=== PATIENT | female | born 1990 | race African-American/Black ===

== ENCOUNTER 2023-02-09 16:55 | Emergency (ER) | payer OTHER ==
[~2023-02-09] VITALS: Ht 165.1 cm; Wt 68.3 kg
[2023-02-09 18:38] LABS: Hematocrit 21.5 % (36.0-46.0); Mean Corpuscular Hemoglobin 17.5 pg (28.0-32.0); Mean Corpuscular Hgb Conc. 29.8 g/dL (32.0-36.0); Mean Corpuscular Volume 58.6 fL (80.0-100.0); Red Blood Cells 3.67 10^6/uL (4.0-5.20)
[2023-02-09 18:45] LABS: Red Cell Distribution Width 21.1 % (11.8-14.3)
[2023-02-09 18:49] LABS: Hemoglobin 6.4 g/dL (12.2-16.2)
[2023-02-09 18:50] LABS: Basophils % (manual) 0 (0.0-2.0); Blast Cells 0; Metamyelocytes % 0; Myelocytes % 0; Promyelocytes % 0; Reactive Lymphocytes 0
[2023-02-09 18:59] LABS: Albumin 3.9 g/dL (3.4-5.0); Calcium 8.5 mg/dL (8.5-10.1); Potassium 4.3 mmol/L (3.5-5.1)
[2023-02-09 19:03] LABS: BUN/Creatinine Ratio 11.1 (10.0-20.0); Bilirubin, Total 0.4 mg/dL (0.2-1.0); Total Protein 7.4 g/dL (6.4-8.2)
[2023-02-09 19:39] LABS: Band Neutrophils % (manual) 1; Eosinophils % (manual) 4 (0-7); Lymphocytes % (manual) 47 (10.0-50.0); Monocytes % (manual) 6 (0-12)
[2023-02-09 21:55] VITALS: BP 113/68
[2023-02-09 22:15] VITALS: BP 112/68
[2023-02-10 02:25] VITALS: BP 105/59
== END 2023-02-10 03:04 | disposition home or self-care (01) ==
LOC: ER 16:55
DX: D64.9 Anemia, unspecified (principal); F12.10 Cannabis abuse, uncomplicated; Z98.84 Bariatric surgery status
CPT/HCPCS: 36415; 36430; 80053; 85007; 85027; 86850; 86900; 86901; 86920; 99285; P9016

== ENCOUNTER → 2023-11-19 | Outpatient (CLI) | payer SELFPAY ==
[2023-11-19 10:25] LABS: % Iron Saturation 20.2 % (15-50)
== END | disposition home or self-care (01) ==
LOC: LAB 09:16
PROVIDERS: ATTEND Obstetrics & Gynecology
DX: Z34.00 Encounter for supervision of normal first pregnancy, unspecified trimester (principal); D64.9 Anemia, unspecified; Z3A.00 Weeks of gestation of pregnancy not specified
CPT/HCPCS: 83540; 83550

== ENCOUNTER 2024-01-13 08:46 | Inpatient (IN) | payer SELFPAY ==
[~2024-01-13] VITALS: Ht 165.1 cm; Wt 89.8 kg
[2024-01-13] VITALS (11 sets, daily range): BP systolic 128–146; BP diastolic 71–95; PULSE 68–90; RESP 16–20; TEMP 98.1–99.3; O2SAT 98–100
[2024-01-13] MEDS ORDERED: WITCH HAZEL-GLYCERIN PAD TOP PRN (10:00)
[2024-01-13] MEDS ORDERED: BUTORPHANOL TARTRATE 2 MG/1 ML VIAL IV PRN ×2 (10:00)
[2024-01-13] MEDS ORDERED: LACT. RINGERS/OXYTOCIN 20UNITS 500 ML IV ONE ×2 (10:00→10:30)
[2024-01-13] MEDS ORDERED: DERMOPLAST 60ML BOTTLE TOP PRN (10:00)
[2024-01-13] MEDS ORDERED: LIDOCAINE 2%HCL (LOCAL ANESTH.) INJ 20ML MDV IJ PRN (10:00)
[2024-01-13] MEDS ORDERED: PHISODERM TOP SOLN 240ML BTL TOP PRN (10:00)
[2024-01-13 10:27] LABS: Basophils # (auto) 0 10 ^3/uL (0-0.2); Eosinophils # (auto) 0.1 10 ^3/uL (0-0.8); Hemoglobin 13.2 g/dL (12.2-16.2); Lymphocytes # (auto) 1.3 10 ^3/uL (0.4-5.4); Mean Corpuscular Hemoglobin 24.8 pg (28.0-32.0); Monocytes # (auto) 0.7 10 ^3/uL (0-1.3)
[2024-01-13 10:29] LABS: Basophils % (auto) 0.2 % (0.0-2.0); Eosinophils % (auto) 0.8 % (0.0-7.0); Hematocrit 41.8 % (36.0-46.0); Lymphocytes % (auto) 12.2 % (10.0-50.0); Mean Corpuscular Hgb Conc. 31.7 g/dL (32.0-36.0); Mean Corpuscular Volume 78.1 fL (80.0-100.0); Monocytes % (auto) 6.8 % (0.0-12.0); Neutrophils # (auto) 8.5 10 ^3/uL (1.6-8.6); Nucleated Red Blood Cells % 0.2 %; Red Blood Cells 5.35 10^6/uL (4.0-5.20); White Blood Cell 10.6 10^3/uL (4.4-10.8)
[2024-01-13 10:30] LABS: Red Cell Distribution Width 26.9 % (11.8-14.3)
[2024-01-13 10:35] LABS: INR 0.93 (0.9-1.15); Partial Thromboplastin Time 29.6 SEC (24.5-34.5); Prothrombin Time 9.8 sec (9.3-11.8)
[2024-01-13 10:37] LABS: Albumin 4.1 g/dL (3.2-4.8); Alkaline Phosphatase 141 U/L (46-116); Anion Gap 5 (5-15); Aspartate Aminotransferase 24 U/L (13-40); BUN/Creatinine Ratio 9.8 (10.0-20.0); Bilirubin, Total 0.5 mg/dL (0.2-1.0); Blood Urea Nitrogen 8 mg/dL (9-23); Carbon Dioxide 25 mmol/L (20-30); Chloride 106 mmol/L (98-107); Glucose 79 mg/dL (74-106); Potassium 4.6 mmol/L (3.5-5.1); Sodium 136 mmol/L (136-145); Total Protein 7.4 g/dL (5.7-8.2)
[2024-01-13 10:41] LABS: Alanine Aminotransferase < 9 U/L (7-40)
[2024-01-13 11:08] LABS: Fern Testing Positive
[2024-01-13 11:25] LABS: Urine Bacteria MANY /hpf (None Seen); Urine Blood TRACE /uL (Negative); Urine Clarity Ex.Turbid (Clear); Urine Color Yellow (Yellow); Urine Mucus FEW (None Seen); Urine Protein, UAD 1+ (Negative); Urine Specific Gravity 1.008 (1.001-1.035); Urine Urobilinogen Normal (Negative); Urine WBC 16 /hpf (0 - 5); Urine pH 6.5 (5.0-9.0)
[2024-01-13 11:34] LABS: Amphetamine Screen, Urine Neg (NEGATIVE); Barbiturate Scree,Urine Neg (NEGATIVE); Benzodiazephine Screen, Urine Neg (NEGATIVE); Cannabinoid Screen, Urine Neg (NEGATIVE); Cocaine Screen, Urine Neg (NEGATIVE); Opiate Scree,Urine Neg (NEGATIVE); Phencyclidine Screen, Urine Neg (NEGATIVE)
[2024-01-13] MEDS: miSOPROStol 50 MCG per PRE-CUT 1/2 TAB PO PRN (12:13)
[2024-01-13] MEDS: PENICILLIN G POT 5MIL/D5 50ML 50 ML IV ONE (12:17)
[2024-01-13] MEDS: ceFAZolin 1GM/50ML 50 ML IV SCH (14:31)
[2024-01-13 14:34] LABS: Protein, Urine 48.8 mg/dL (0.0-11.9)
[2024-01-13 14:37] LABS: Creatinine, Urine 38.77 mg/dL (30.0-125.0); Urine Protein/Creatinine Ratio 1.26
[2024-01-13] MEDS ORDERED: ROPIVACAINE HCL 200 ML ONE (15:41)
[2024-01-13] MEDS ORDERED: ePHEDrine SULFATE 50 MG/ML AMP IV ONE (15:45)
[2024-01-13] MEDS ORDERED: fentaNYL CITRATE 100 MCG/2 ML VL IV ONE (15:45)
[2024-01-13] MEDS ORDERED: NALOXONE HCL 0.4 MG/ML VIAL IV ONE (15:45)
[2024-01-13] MEDS ORDERED: PENICILLIN G POTASSIUM 2,500,000 UNITS in D5W 5% 50 ML IV SCH (16:00)
[2024-01-13] MEDS ORDERED: HYDR-4902 PO (16:00)
[2024-01-13] MEDS ORDERED: IBUP-1456 PO (16:00)
[2024-01-13] MEDS ORDERED: DOCU-94 PO (16:00)
[2024-01-13] MEDS: LIDOCAINE HCL 2 %PF INJ 10ML AMP IJ ONE ×2 (16:11→16:20)
[2024-01-13] MEDS ORDERED: ceFAZolin 1GM/50ML 50 ML IV SCH (16:15)
[2024-01-13] MEDS ORDERED: MORPHINE SULF PF 5 MG/10 ML VIAL ONE (16:15)
[2024-01-13] MEDS ORDERED: oxyTOCIN 10 UNIT/ML 10ML VIAL ONE (16:15)
[2024-01-13] MEDS ORDERED: ONDANSETRON HCL 4 MG/2 ML VIAL ONE (16:15)
[2024-01-13] MEDS ORDERED: ONDANSETRON HCL 4 MG/2 ML VIAL IV PRN ×2 (16:15→17:45)
[2024-01-13] MEDS ORDERED: LACT. RINGERS/OXYTOCIN 20UNITS 1,000 ML IV ONE (16:15)
[2024-01-13] MEDS ORDERED: GLYCOPYRROLATE 0.2 MG/ML 1ML VIAL ONE (16:15)
[2024-01-13] MEDS: GUM (CHEWING) 1 GUM CHEW CHEW ONE (16:15)
[2024-01-13] MEDS ORDERED: KETOROLAC TROMETH 30 MG/ML 1ML VIAL ONE (16:15)
[2024-01-13 16:17] LABS: Protein, Urine 18.7 mg/dL (0.0-11.9)
[2024-01-13 16:22] LABS: Creatinine, Urine 29.14 mg/dL (30.0-125.0); Urine Protein/Creatinine Ratio 0.64
[2024-01-13] MEDS ORDERED: MEPERIDINE HCL (25 MG/ML) 1ML VIAL ONE (17:21)
[2024-01-13] MEDS ORDERED: DexAMETHasone SOD PHOS 10MG/1ML VIAL INJ IV PRN (17:45)
[2024-01-13] MEDS ORDERED: NALOXONE HCL 0.4 MG/ML VIAL IV PRN (17:45)
[2024-01-13] MEDS ORDERED: diphenhdrAMINE HCL 50 MG/1 ML VL IV PRN (17:45)
[2024-01-13] MEDS: LACTATED RINGER'S 1,000 ML IV SCH (18:00)
[2024-01-13 22:42] LABS: Basophils # (auto) 0 10 ^3/uL (0-0.2); Eosinophils # (auto) 0.1 10 ^3/uL (0-0.8); Eosinophils % (auto) 0.5 % (0.0-7.0); Lymphocytes # (auto) 1.5 10 ^3/uL (0.4-5.4); Nucleated Red Blood Cells % 0.1 %
[2024-01-13 22:44] LABS: Basophils % (auto) 0.4 % (0.0-2.0); Hematocrit 35.1 % (36.0-46.0); Lymphocytes % (auto) 11.1 % (10.0-50.0); Mean Corpuscular Hemoglobin 24.4 pg (28.0-32.0); Mean Corpuscular Hgb Conc. 31.4 g/dL (32.0-36.0); Mean Corpuscular Volume 77.6 fL (80.0-100.0); Monocytes # (auto) 0.8 10 ^3/uL (0-1.3); Monocytes % (auto) 6.2 % (0.0-12.0); Neutrophils # (auto) 10.7 10 ^3/uL (1.6-8.6); Neutrophils % (auto) 81.8 % (37.0-80.0); Red Blood Cells 4.52 10^6/uL (4.0-5.20); White Blood Cell 13.1 10^3/uL (4.4-10.8)
[2024-01-14] VITALS (14 sets, daily range): BP systolic 115–137; BP diastolic 66–89; PULSE 65–90; RESP 16–20; TEMP 97.9–99; O2SAT 96–100
[2024-01-14 02:23] LABS: Red Cell Distribution Width 26.6 % (11.8-14.3)
[2024-01-14] MEDS: KETOROLAC TROMETH 30 MG/ML 1ML VIAL IV PRN (04:25)
[2024-01-14 07:06] LABS: RPR Non Reactive (Non Reactive)
[2024-01-14 07:14] LABS: Basophils # (auto) 0 10 ^3/uL (0-0.2); Basophils % (auto) 0.3 % (0.0-2.0); Eosinophils # (auto) 0.1 10 ^3/uL (0-0.8); Hemoglobin 11.1 g/dL (12.2-16.2); Neutrophils % (auto) 79.7 % (37.0-80.0)
[2024-01-14 07:20] LABS: Eosinophils % (auto) 1.2 % (0.0-7.0); Hematocrit 34.9 % (36.0-46.0); Lymphocytes # (auto) 1.1 10 ^3/uL (0.4-5.4); Lymphocytes % (auto) 10.4 % (10.0-50.0); Mean Corpuscular Hemoglobin 24.9 pg (28.0-32.0); Mean Corpuscular Hgb Conc. 31.9 g/dL (32.0-36.0); Mean Corpuscular Volume 78.1 fL (80.0-100.0); Monocytes # (auto) 0.9 10 ^3/uL (0-1.3); Monocytes % (auto) 8.4 % (0.0-12.0); Neutrophils # (auto) 8.4 10 ^3/uL (1.6-8.6); Red Blood Cells 4.47 10^6/uL (4.0-5.20); Red Cell Distribution Width 27.2 % (11.8-14.3); White Blood Cell 10.5 10^3/uL (4.4-10.8)
[2024-01-14] MEDS: ceFAZolin 1GM/50ML 50 ML IV SCH (08:15)
[2024-01-14] MEDS: ACETAMINOPHEN IV 1000 MG/100ML (10MG/ML) IV PRN (11:11)
[2024-01-14] MEDS ORDERED: BISACODYL 10 MG RECT SUPP PR PRN (13:15)
[2024-01-14] MEDS: IBUPROFEN 800 MG TAB PO PRN (14:55)
[2024-01-14] MEDS: SIMETHICONE 80 MG CHEWABLE TABLET PO SCH (17:42)
[2024-01-14] MEDS: HYDROcodone-ACET 5/325MG TAB PO PRN (18:54)
[2024-01-14] MEDS: DOCUSATE SOD 100 MG CAP PO SCH (22:31)
[2024-01-15] MEDS: HYDROcodone-ACET 5/325MG TAB PO PRN (02:53)
[2024-01-15 03:10] VITALS: BP 138/85; PULSE 64; RESP 18; TEMP 97.8; O2SAT 100
[2024-01-15 07:00] VITALS: BP 121/79; PULSE 72; RESP 16; TEMP 98; O2SAT 99
[2024-01-15] MEDS: DOCUSATE CALCIUM 240 MG CAP PO SCH (10:31)
[2024-01-15 10:50] VITALS: BP 133/81; PULSE 69; RESP 18; TEMP 98; O2SAT 98
[2024-01-15 15:29] VITALS: BP 146/88; PULSE 75; RESP 18; TEMP 97.8; O2SAT 100
[2024-01-15 19:00] VITALS: BP 142/88; PULSE 89; RESP 18; TEMP 98.1; O2SAT 99
[2024-01-15 19:06] LABS: Treponema pallidum Ab (FTA-Ab) Non Reactive (Non Reactive)
[2024-01-15 23:00] VITALS: BP_SYST 137; BP_SYST 140; BP_DIAS 88; PULSE 78; RESP 16; TEMP 98.2; O2SAT 98
[2024-01-16 03:00] VITALS: BP 147/87; PULSE 68; RESP 17; TEMP 98.5; O2SAT 98
[2024-01-16 07:08] VITALS: BP 140/78; PULSE 65; RESP 16; TEMP 98.3; O2SAT 96
[2024-01-16 11:15] VITALS: BP 138/87; PULSE 70; RESP 15; TEMP 98.1; O2SAT 98
[2024-01-16] MEDS: MEASLES, MUMPS & RUBELLA VAC(MMRII) 0.5ML SC ONE (13:22)
[2024-01-16 13:33] VITALS: BP 125/75; PULSE 74; RESP 16; TEMP 98.7; O2SAT 98
== END 2024-01-16 13:33 | disposition home or self-care (01) | DRG 787 ==
LOC: LDRP 08:46 → OBSVTOIN 08:46 → LDRP 08:47
PROVIDERS: ADMIT Obstetrics & Gynecology; ATTEND Obstetrics & Gynecology
PROC: 3E0E3GC Introduction of Other Therapeutic Substance into Products of Conception, Percutaneous Approach (ICD-10-PCS; 2024-01-13)
PROC: 10D00Z1 Extraction of Products of Conception, Low, Open Approach (ICD-10-PCS; principal; 2024-01-13 16:30)
DX: O42.913 Preterm premature rupture of membranes, unspecified as to length of time between rupture and onset of labor, third trimester (principal); R71.0 Precipitous drop in hematocrit; O76 Abnormality in fetal heart rate and rhythm complicating labor and delivery; Z3A.36 36 weeks gestation of pregnancy; O77.0 Labor and delivery complicated by meconium in amniotic fluid; Z37.0 Single live birth; O99.824 Streptococcus B carrier state complicating childbirth; O14.94 Unspecified pre-eclampsia, complicating childbirth
CPT/HCPCS: 36415; 59025; 62282; 80053; 80307; 81001; 81002; 82570; 84112; 84156; 84550; 85025; 85610; 85730; 86592; 86703; 86850; 86900; 86901; 87340; 94760; 94762; 96360; 96361; 96365; 96366; 96372; G0378; J0131; J1885; J2405; J2540; J2590; J7060

== ENCOUNTER → 2025-01-18 | Outpatient (CLI) | payer MEDICAID ==
[~2025-01-18] MED LIST: DOCU-94 PO; HYDR-4902 PO; IBUP-1456 PO
[2025-01-18 12:29] LABS: Urine Bacteria None Seen /hpf (None Seen)
[2025-01-18 13:10] LABS: Basophils # (auto) 0 10 ^3/uL (0-0.2); Basophils % (auto) 0.6 % (0.0-2.0); Eosinophils # (auto) 0.2 10 ^3/uL (0-0.8); Eosinophils % (auto) 3.5 % (0.0-7.0); Hematocrit 36.3 % (36.0-46.0); Hemoglobin 11.9 g/dL (12.2-16.2); Lymphocytes # (auto) 1.8 10 ^3/uL (0.4-5.4); Lymphocytes % (auto) 35.6 % (10.0-50.0); Mean Corpuscular Hgb Conc. 32.9 g/dL (32.0-36.0); Monocytes # (auto) 0.2 10 ^3/uL (0-1.3); Monocytes % (auto) 4.9 % (0.0-12.0); Neutrophils # (auto) 2.8 10 ^3/uL (1.6-8.6); Neutrophils % (auto) 55.4 % (37.0-80.0); Nucleated Red Blood Cells % 0.1 %; Platelet Count (auto) 361 10^3/uL (140-450); Red Blood Cells 4.42 10^6/uL (4.0-5.20); Red Cell Distribution Width 17.7 % (11.8-14.3)
[2025-01-18 13:19] LABS: Urine Blood Negative /uL (Negative); Urine Clarity Clear (Clear); Urine Color Yellow (Yellow); Urine Mucus FEW (None Seen); Urine Protein, UAD Negative (Negative); Urine Squamous Epithelial Cell FEW /hpf (<5); Urine Urobilinogen 3 mg/dL (Negative); Urine WBC 1 /HPF (0-5); Urine pH 5.5 (5.0-9.0)
[2025-01-18 13:22] LABS: Alanine Aminotransferase 11 U/L (7-40); Albumin 4.7 g/dL (3.2-4.8); Alkaline Phosphatase 107 U/L (46-116); Anion Gap 3 (5-15); Aspartate Aminotransferase 15 U/L (13-40); BUN/Creatinine Ratio 11.4 (10.0-20.0); Calcium 9.5 mg/dL (8.7-10.4); Carbon Dioxide 25 mmol/L (20-31); Glucose 80 mg/dL (74-106); Potassium 3.7 mmol/L (3.5-5.1); Sodium 143 mmol/L (136-145); Total Protein 7.6 g/dL (5.7-8.2)
[2025-01-18 13:23] LABS: Bilirubin, Total 0.9 mg/dL (0.2-1.0); Blood Urea Nitrogen 9 mg/dL (9-23); Chloride 115 mmol/L (98-107)
[2025-01-18 13:26] LABS: Folate (Folic Acid) 6.1 ng/mL (>5.38)
[2025-01-18 13:28] LABS: Beta HCG, Quantitative 1.5 mIU/mL (1.5-4.2); Thyroid Stimulating Hormone 3.3 uIU/mL (0.55-4.78)
[2025-01-18 13:51] LABS: Amphetamine Screen, Urine Neg (NEGATIVE); Barbiturate Scree,Urine Neg (NEGATIVE); Benzodiazephine Screen, Urine Neg (NEGATIVE); Cannabinoid Screen, Urine Pos (NEGATIVE); Cocaine Screen, Urine Neg (NEGATIVE); Opiate Scree,Urine Neg (NEGATIVE); Phencyclidine Screen, Urine Neg (NEGATIVE)
[2025-01-20 01:06] LABS: Chlamydia Trachomatis, NAA Negative (Negative); Neisseria gonorrhoeae, NAA Negative (Negative)
== END | disposition home or self-care (01) ==
LOC: LAB 11:56
PROVIDERS: ATTEND Internal Medicine
DX: Z13.9 Encounter for screening, unspecified (principal)
CPT/HCPCS: 36415; 80053; 80307; 81001; 81025; 82306; 82607; 82746; 83036; 84443; 84702; 85025; 86703; 86780; 87340; 87902